=== PATIENT | male | born 1950 | race African-American/Black ===

== ENCOUNTER 2017-10-20 12:34 | Emergency (ER) | payer MEDICARE, OTHER ==
[~2017-10-20] VITALS: Ht 175.3 cm; Wt 66.0 kg
[2017-10-20 13:10] VITALS: BP 90/59
[2017-10-20] MEDS ORDERED: ACETAMINOPHEN 500MG TABLET PO ONE (13:15)
[2017-10-20 16:15] LABS: HEMATOCRIT. 36.4 % (42.0-52.0); HEMOGLOBIN. 11.9 g/dL (14.0-18.0); MEAN CORPUSCULAR HEMOGLOBIN 26.3 pg (28.0-32.0); MEAN CORPUSCULAR VOLUME 80.4 fL (80.0-94.0); MEAN PLATELET VOLUME 7.9 fl (7.4-10.4); PLATELET 277 x1000/uL (130-400); RED BLOOD CELL COUNT 4.52 mill/uL (4.7-6.1); RED CELL DISTRIBUTION WIDTH 16.2 % (11.6-14.6)
[2017-10-20 16:21] LABS: CHLORIDE 95 mEq/L (98-107)
[2017-10-20 16:42] LABS: PLATELET ESTIMATE NORMAL
== END 2017-10-20 17:29 | disposition left against medical advice (07) ==
LOC: ER 14:45
DX: K40.90 Unilateral inguinal hernia, without obstruction or gangrene, not specified as recurrent (principal); D64.9 Anemia, unspecified; E87.1 Hypo-osmolality and hyponatremia; F17.200 Nicotine dependence, unspecified, uncomplicated; F12.10 Cannabis abuse, uncomplicated
CPT/HCPCS: 36415; 76857; 76870; 80053; 85025; 93976; 99285